=== PATIENT | male | born 1975 | race Caucasian/White ===

== ENCOUNTER 2016-06-25 17:56 | Emergency (ER) | payer OTHER ==
[~2016-06-25] VITALS: Ht 167.6 cm; Wt 78.0 kg
[2016-06-25 17:58] VITALS: Ht 167.6 cm; Wt 78.0 kg
[2016-06-25] MEDS ORDERED: IBUP-1724 PO (18:25)
[2016-06-25] MEDS ORDERED: NO ROUTINE MEDS (18:25)
[2016-06-25] MEDS ORDERED: KETOROLAC 60mg/2ml INJECTION IM ONE (18:30)
[2016-06-25] MEDS ORDERED: OXYCODONE/APAP 5mg/325mg TABLET PO ONE (18:30)
--- NOTE | 2016-06-25 18:35 | NUR ---
XR Patient out to XRay
[2016-06-25 18:38] LABS: BASOPHILS % (AUTO) 0.4 % (0-2); EOSINOPHILS # (AUTO) 0.2 T/MM3 (0-0.5); HCT - HEMATOCRIT 39.7 % (41-53); HGB - HEMOGLOBIN 13.3 GM/DL (13.5-17.5); IMMATURE GRANULOCYTE # (AUTO) 0.03 T/MM3 (0.00-0.03); IMMATURE GRANULOCYTE % (AUTO) 0.4 % (0.0-0.5); LYMPHOCYTES # (AUTO) 1.7 T/MM3 (1-4.8); LYMPHOCYTES % (AUTO) 21.7 % (23-45); MEAN CORPUSCULAR HGB 30.4 UUG (26-34); MEAN CORPUSCULAR HGB CONC(MCHC 33.5 GM/DL (31-37); MEAN CORPUSCULAR VOLUME 90.8 UM3 (80-100); MEAN PLATELET VOLUME 10.3 UM3 (9.4-12.4); MONOCYTES # (AUTO) 0.9 T/MM3 (0-0.8); MONOCYTES % (AUTO) 10.8 % (0-9.0); NEUTROPHILS #(AUTO)-ABSOLUTE 5.1 T/MM3 (1.8-7.7); NEUTROPHILS % (AUTO) 64.7 % (33-66); RED BLOOD COUNT 4.37 M/MM3 (4.50-5.90); WBC - WHITE BLOOD COUNT 7.9 T/MM3 (4.5-11.0)
--- NOTE | 2016-06-25 18:41 | NUR ---
XR Patient returns
[2016-06-25 18:51] LABS: ALBUMIN 4.3 G/DL (3.5-5.0); ALBUMIN/GLOBULIN RATIO 1.6 RATIO (1.1-2.2); ALKALINE PHOSPHATASE 87 U/L (38-126); ALT (SGPT) 35 U/L (21-72); ANION GAP 14 MEQ/L (5-15); AST (SGOT) 20 U/L (17-59); BUN/CREATININE RATIO 24 RATIO (6-26); CALCIUM 8.8 MG/DL (8.4-10.2); CHLORIDE 109 MEQ/L (98-107); CO2 - CARBON DIOXIDE 22 MEQ/L (22-30); CREATININE 0.7 MG/DL (0.8-1.5); GLOMERULAR FILTRATION RATE 124; GLUCOSE 108 MG/DL (75-110); POTASSIUM 4.1 MEQ/L (3.6-5); SODIUM 145 MEQ/L (134-144)
[2016-06-25 19:25] LABS: BLOOD, URINE NEGATIVE (NEGATIVE); COLOR,URINE YELLOW (YELLOW); LEUKOCYTE ESTERASE ,URINE NEGATIVE (NEGATIVE); NITRITE,URINE NEGATIVE (NEGATIVE); UROBILINOGEN,URINE 0.2 EU/DL (NORMAL)
--- NOTE | 2016-06-25 19:27 | ERPDOC ---
Departure Disposition Decision Date: June 25, 2016 Disposition Decision Time: 19:28 Disposition: 01 DISCHARGED HOME, SELF-CARE Impression Impression Impression: Primary Impression: Nerve root compression Additional Impression: Radiculopathy Severity: Moderate Condition: Improved Seen By: Physician only Referrals: ANKIT KABA MD (Family) Patient Instructions: Acute Low Back Pain (ED), Sciatica (ED) Problems/Meds/Labs Reviewed?: Yes Medications reviewed and manag: Yes Additional Instructions: Prednisone 10 mg tabs 3 tabs daily for 3 days, 2 tabs daily for 3 days, 1 tablet daily for 3 days. Percocet 5 mg, one tablet every 4 hours as needed for pain, #15 tablets. Robaxin 750 mg, 1 tab 4 times a day when necessary pain. Recommend he take at least one day off of work. Recommend he see a primary care provider to set up follow-up plan. Follow up care ordered?: Yes Scripts Diclofenac Sodium (Voltaren) 100 Gm Gel..gram. 1 APPLIC TOP TID, #1 TUBE 3 Refills Prov: GARFIELD LANDON MD 06/25/16 Prednisone (Prednisone) 10 Mg Tablet 0 PO TAPERQD, #18 TAB 30 mg daily x3 days 20 mg daily x3 days 10 mg daily x2 days Prov: GARFIELD LANDON MD 06/25/16 Methocarbamol (Robaxin-750) 750 Mg Tablet 750 MG PO QID Y for SPASMS, #30 TAB Take 1 tablet, by mouth, 4 times a day. Prov: GARFIELD LANDON MD 06/25/16 Oxycodone HCl/Acetaminophen (Percocet 5-325 mg Tablet) 5-325 Tablet 1 TAB PO QID for PAIN, #15 TAB Take 1 tablet, by mouth, 4 times a day. Prov: GARFIELD LANDON MD 06/25/16 HPI - Back Pain General Chief Complaint: Low Back Pain or Injury Stated Complaint: BACK PAIN Time Seen by Provider: 18:17 HPI - Back Pain Initial Comments 41-year-old gentleman with back pain for 2 days. Patient was pulling the rope mower started up and felt his back pop with pain suddenly radiating down his right leg. 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 He was unable to go to work tonight, brought him in to the ED for evaluation. He was or chills, no dysuria. States pain in his low back radiating into right buttock and leg. He tried to sleep today, but was too uncomfortable and could not rest. No loss of bowel or bladder control. Allergies: Coded Allergies: morphine (Verified Allergy, Intermediate, HIVES, 06/25/16) Past History Patient Medical History Problem List Updates: Negative Past Medical History Pt denies signifigant PMH Surgical History Denies Surgeries Family History Family PMH: FOUND: hypertension Social History Smoking Status: Former smoker Substance Use Type: does not use Record Review Pertinent history updated: Yes Review of Systems Musculoskeletal General: see HPI Neurological General: see HPI All other Systems All Other Systems: Reviewed and Negative Physical Exam General General Nourishment: well nourished, well developed, appears stated age, adult Distress Description Patient is bracing himself on the bed, in obvious pain. Sitting with legs off the side of the bed. General Body Habitus: well groomed Vitals and Pain First Documented Vital Signs Date Time Temp Pulse Resp B/P Pulse Ox O2 Delivery O2 Flow Rate FiO2 06/25/16 17:58 98.0 74 18 151/92 99 Room Air Weight: Kilograms: 78.000 Height (feet): 5 Height (inches): 6.00 Triage Pain Scale: Normal Exams: Head: Normocephalic w/o trauma Chest/Resp: Clear all calloway, with good airflow, and symmetry bilaterally CV: Regular rate and rhythm, without murmur or gallop, Pulses 2+ all extremities, capillary refill, <2 seconds all ext., no pedal edema noted Abdomen: Bowel sounds positive, soft, non-tender, non-distended, no hepatosplenomegaly, masses or bruits noted Neurologic: Patient is alert, and oriented, cranial nerves, motor/sensory/ cerebellar, exams w/o gross deficits, to observation Psychiatric: Patient exhibits, appropriate attention, emotion and affect Musculoskeletal (brief) Comments Tenderness low spine. Neurologic (brief) Comments Sensory intact both legs, full strength both legs, DTRs 2+ both legs. Differential Diagnoses Considering: Compression Fracture, Lumbar Sprain, Lumbar Strain, Other Progress Results/Orders Orders Procedure Category Date Status Time Cmp - Comprehensive LAB 06/25/16 Complete Metabolic 18:21 Cbc W/Auto LAB 06/25/16 Complete Diff-Reflex Manual 18:21 Ua, Dip Wreflex LAB 06/25/16 Logged Microsc & Platemaker 18:21 Lumbar Spine 2-3 Views RAD 06/25/16 Taken 18:21 Ketorolac (Toradol) PHA 06/25/16 Complete 18:30 Oxycodone/Apap 325 PHA 06/25/16 Complete (Percocet 325) 18:30 Lab Results Laboratory Tests Test 06/25/16 18:33 White Blood Count 7.9T/MM3 Red Blood Count 4.37M/MM3 Hemoglobin 13.3GM/DL Hematocrit 39.7% Mean Corpuscular Volume 90.8UM3 Mean Corpuscular Hemoglobin 30.4UUG Mean Corpuscular Hemoglobin Concent 33.5GM/DL RDW Standard Deviation 42.2FL Platelet Count 335T/MM3 Mean Platelet Volume 10.3UM3 Immature Granulocyte % (Auto) 0.4% Neutrophils (%) (Auto) 64.7% Lymphocytes (%) (Auto) 21.7% Monocytes (%) (Auto) 10.8% Eosinophils (%) (Auto) 2.0% Basophils (%) (Auto) 0.4% Absolute Immature Granulocyte (auto 0.03T/MM3 Absolute Neutrophils (auto) 5.1T/MM3 Absolute Lymphocytes (auto) 1.7T/MM3 Absolute Monocytes (auto) 0.9T/MM3 Absolute Eosinophils (auto) 0.2T/MM3 Absolute Basophils (auto) 0.0T/MM3 Turbidity < 20 Sodium Level 145MEQ/L Potassium Level 4.1MEQ/L Chloride Level 109MEQ/L Carbon Dioxide Level 22MEQ/L Anion Gap 14MEQ/L Blood Urea Nitrogen 17.0MG/DL Creatinine 0.7MG/DL Glomerular Filtration Rate Calc 124 BUN/Creatinine Ratio 24RATIO Glucose Level 108MG/DL Calculated Osmolality 282MOSM/KG Calcium Level 8.8MG/DL Total Bilirubin 0.30MG/DL Icterus Index < 2 Aspartate Amino Transf (AST/SGOT) 20U/L Alanine Aminotransferase (ALT/SGPT) 35U/L Alkaline Phosphatase 87U/L Total Protein 7.0G/DL Albumin 4.3G/DL Globulin 2.7G/DL Albumin/Globulin Ratio 1.6RATIO Chemistry Specimen Hemolysis < 15 Medications Current ED Medications Ketorolac Tromethamine (Toradol) 60 mg O ONCE IM Last administered on 19:08; Start 06/25/16 at 18:30; Stop 06/25/16 at 18:31; Status DC Oxycodone/ Acetaminophen (Percocet 5/325) 1 tab O ONCE PO Last administered on 06/25/16 19:08; Start 06/25/16 at 18:30; Stop 06/25/16 at 18:31; Status DC Progress Progress CBC CMP returned appropriate. UA is negative. X-ray of lumbar spine shows possible L3 L2 disc space compression. This fits with the patient's pain. This decision more workup if pain continues. However initially I would have him start with Percocet 5 mg every 4 hours when necessary, prednisone burst and taper, Robaxin as muscle relaxer. Take him off work the next 24 hours. He is welcome to return at any time. Have him follow-up with his primary care provider to establish care and to determine the follow-up plan. Patient is of elevated blood pressure, may be due to pain. However he does need to follow-up with primary care provider. He'll also need a general physical BARBIGARFIELD ROLLINS MD June 25, 2016 19:27
[2016-06-25] MEDS ORDERED: DICL100G5 TOP (19:31)
[2016-06-25] MEDS ORDERED: OXYC1TAB8 PO (19:31)
[2016-06-25] MEDS ORDERED: METH-310 PO (19:31)
[2016-06-25] MEDS ORDERED: PRED10TA PO (19:31)
[2016-06-25 19:45] VITALS: BP 145/89; PULSE 73; RESP 16; TEMP 98; O2SAT 99
--- NOTE | 2016-06-26 08:35 | DI ---
Indication: ITS.REASON: low back pain with radiculopathy PROCEDURE: LUMBAR SPINE 2-3 VIEWS: Encounter: Initial Comparison: None available Findings: AP and lateral views were obtained. There is no significant compression deformity or spondylolisthesis. Minimal disc space narrowing is seen at L1-2 and L2-3. Frontal view shows no significant scoliotic deformity. SI joints and sacral arcuate lines are intact. Impression: 1. No compression deformity or spondylolisthesis. 2. Minimal disc space narrowing L1-2 and L2-3. .
== END 2016-06-25 19:45 | disposition home or self-care (01) ==
LOC: ED 17:56
DX: M54.16 Radiculopathy, lumbar region (principal)
CPT/HCPCS: 36415; 72100; 80053; 81003; 85025; 96372; 99283; J1885